=== PATIENT | male | born 1985 ===

== ENCOUNTER 2018-10-14 22:42 | Emergency (ER) | payer MEDICAID ==
[2018-10-14 22:57] VITALS: BP 143/88; PULSE 75; RESP 16; TEMP 98.5; O2SAT 99
[2018-10-14] MEDS ORDERED: Tdap Vaccine 0.5 ml Vial (10-64 yrs) IM ONE (23:48)
[2018-10-14] MEDS ORDERED: Lidocaine 2% Inj (20ml) INFIL ONE (23:49)
--- NOTE | 2018-10-15 | ED PDOC ---
HPI: General Adult Time Seen by Provider: 10/14/18 23:58 Chief Complaint (Nursing): Abnormal Skin Integrity Chief Complaint (Provider): FINGER LACERATION History Per: Patient (33 Y/O MALE HERE WITH FINGER LACERATION THAT OCCURRED PRIOR TO ED ARRIVAL. PATIENT WAS WASHING GLASS WHEN HE CUT HAND WITH EDGE OF BROKEN GLASS. LACERATION IS BY MCP FIFTH DIGIT. DOES NOT FEEL ANY FOREIGN BODY SENSATION. TETANUS UP TODATE.) Past Medical History Reviewed: Historical Data, Nursing Documentation, Vital Signs Vital Signs: Last Vital Signs Temp 98.5 F 10/14/18 22:54 Pulse 75 10/14/18 22:54 Resp 16 10/14/18 22:54 BP 143/88 10/14/18 22:54 Pulse Ox 99 10/14/18 22:54 - Medical History PMH: Anxiety, Depression, Post Traumatic Stress Disorder Denies: Diabetes, Hepatitis, HIV, HTN, Chronic Kidney Disease, Seizures, Sexually Transmitted Disease - Family History Family History: States: Unknown Family Hx - Immunization History Hx Tetanus Toxoid Vaccination: No Hx Influenza Vaccination: No Hx Pneumococcal Vaccination: No - Home Medications Home Medications: Ambulatory Orders Medication Instructions Recorded clonazePAM [clonAZEPAM] 0.5 mg PO DAILY 07/16/15 Cephalexin [Keflex] 500 mg PO TID #21 capsule 04/01/17 Tamsulosin [Flomax] 0.4 mg PO DAILY #15 cap 09/26/17 traMADol [Ultram] 50 mg PO TID PRN #15 tab 09/26/17 Ibuprofen [Motrin] 600 mg PO Q8 PRN #21 tab 10/15/18 - Allergies Allergies/Adverse Reactions: Allergies Allergy/AdvReac Type Severity Reaction Status Date / Time No Known Allergies Allergy Verified 09/25/17 23:30 Review of Systems ROS Statement: Except As Marked, All Systems Reviewed And Found Negative Physical Exam - Reviewed Nursing Documentation Reviewed: Yes Vital Signs Reviewed: Yes - Physical Exam Appears: Positive for: Well, Non-toxic, No Acute Distress Head Exam: Positive for: ATRAUMATIC, NORMAL INSPECTION, NORMOCEPHALIC Skin: Positive for: Normal Color, Warm, DRY Eye Exam: Positive for: EOMI, Normal appearance, PERRL ENT: Positive for: Normal ENT Inspection Neck: Positive for: Normal, Painless ROM Cardiovascular/Chest: Positive for: Regular Rate, Rhythm Respiratory: Positive for: CNT, Normal Breath Sounds Gastrointestinal/Abdominal: Positive for: Normal Exam, Soft Back: Positive for: Normal Inspection Extremity: Positive for: Normal ROM, Other (2.0CM LACERATION LATERAL ASPECT OF 5TH MCP FLAP LACERATION) Neurologic/Psych: Positive for: Alert, Oriented - ECG O2 Sat by Pulse Oximetry: 99 - Progress ED Course And Treament: TDAP 0.5ML IM X 1 DOSE Disposition - Clinical Impression Clinical Impression: Finger laceration - Patient ED Disposition Is Patient to be Admitted: No - Disposition Disposition: Routine/Home Disposition Time: 00:25 Condition: STABLE Additional Instructions: RETURN IN 7 TO 10 DAYS FOR REMOVAL OF SUTURES Prescriptions: Ibuprofen [Motrin] 600 mg PO Q8 PRN #21 tab PRN Reason: Pain, Moderate (4-7) Instructions: Laceration Repair With Stitches (DC) Forms: [facility] ED School/Work Excuse Procedure: Wound Repair - Time Performed Time Performed: 00:00 - Time Out Time Out: Site verified - Consent Obtained Consent obtained: Verbal - Performed by Performed by: Mid-level Provider - Indications Indication(s):: Laceration - Location Finger:: Right, Ring Shape:: Curvilinear Dimensions Length cm: 2.0CM Depth:: Epidermis - Anesthetic Technique Local/Regional Anesthetic:: Lidocaine 2% - Debris Debris:: None - Irrigated Irrigated with ml of normal saline: 150ML - Complexity Complexity:: Simple (one layer) - Wound repair method Sutures:: # (SIX 4-0 NYLON SUTURES.)
== END 2018-10-15 00:29 | disposition home or self-care (01) ==
LOC: H.ER 22:42
DX: S61.218A Laceration without foreign body of other finger without damage to nail, initial encounter (principal); W25.XXXA Contact with sharp glass, initial encounter; Y93.G1 Activity, food preparation and clean up; Z86.59 Personal history of other mental and behavioral disorders; F43.10 Post-traumatic stress disorder, unspecified; Z23 Encounter for immunization

== ENCOUNTER 2018-11-06 10:56 | Emergency (ER) | payer MEDICAID ==
[2018-11-06 11:05] VITALS: O2SAT 98
--- NOTE | 2018-11-06 12:52 | ED PDOC ---
Lower Extremity Pain/Injury Time Seen by Provider: 11/06/18 11:28 Chief Complaint (Nursing): Lower Extremity Problem/Injury Chief Complaint (Provider): Lower Extremity Problem/Injury History Per: Patient History/Exam Limitations: no limitations Onset/Duration Of Symptoms: Days (x1) Current Symptoms Are (Timing): Still Present Additional Complaint(s): Patient is a 33 y/o male with a PMHx of anxiety, depression, and PTSD who presents to the ED for evaluation of left lateral ankle pain and swelling onset yesterday. Patient took a mechanical fall down two steps. Patient woke up this morning with worsened pain and swelling. Patient states he can put some pressure on left foot but is unable to take more than three tor four steps. Patient has not taken any pain mediation for relief. PCP: Dr. Shaik Betancur Past Medical History Reviewed: Historical Data, Nursing Documentation, Vital Signs Vital Signs: Last Vital Signs Temp 97.7 F 11/06/18 11:21 Pulse 18 L 11/06/18 11:21 Resp 94 H 11/06/18 11:21 BP 155/78 H 11/06/18 11:21 Pulse Ox 98 11/06/18 11:21 - Medical History PMH: Anxiety, Depression, Post Traumatic Stress Disorder Denies: Diabetes, Hepatitis, HIV, HTN, Chronic Kidney Disease, Seizures, Sexually Transmitted Disease - Surgical History Surgical History: No Surg Hx - Family History Family History: States: Unknown Family Hx - Immunization History Hx Tetanus Toxoid Vaccination: No Hx Influenza Vaccination: No Hx Pneumococcal Vaccination: No - Home Medications Home Medications: Ambulatory Orders Medication Instructions Recorded clonazePAM [clonAZEPAM] 0.5 mg PO DAILY 07/16/15 Cephalexin [Keflex] 500 mg PO TID #21 capsule 04/01/17 Tamsulosin [Flomax] 0.4 mg PO DAILY #15 cap 09/26/17 traMADol [Ultram] 50 mg PO TID PRN #15 tab 09/26/17 Ibuprofen [Motrin] 600 mg PO Q8 PRN #21 tab 10/15/18 Ibuprofen [Motrin Tab] 800 mg PO Q6 #15 tab 11/06/18 - Allergies Allergies/Adverse Reactions: Allergies Allergy/AdvReac Type Severity Reaction Status Date / Time No Known Allergies Allergy Verified 09/25/17 23:30 Review of Systems ROS Statement: Except As Marked, All Systems Reviewed And Found Negative Constitutional: Positive for: Other (difficulty ambulating) Musculoskeletal: Positive for: Other (Left Ankle Pain and Swelling) Physical Exam - Reviewed Nursing Documentation Reviewed: Yes Vital Signs Reviewed: Yes - Physical Exam Appears: Positive for: No Acute Distress Head Exam: Positive for: ATRAUMATIC, NORMAL INSPECTION, NORMOCEPHALIC Skin: Positive for: Normal Color, Warm, Dry Eye Exam: Positive for: EOMI, Normal appearance, PERRL Neck: Positive for: Normal, Painless ROM, Supple Cardiovascular/Chest: Positive for: Regular Rate, Rhythm. Negative for: Murmur Respiratory: Positive for: Normal Breath Sounds. Negative for: Respiratory Dis tress Pulses-Dorsalis Pedis (L): 2+ Pulses-Dorsalis Pedis (R): 2+ Back: Positive for: Normal Inspection. Negative for: L CVA Tenderness, R CVA Tenderness, Vertebral Tenderness Extremity: Positive for: Normal ROM (with pain on dorsi and plantar flexion), Tenderness ( to anterior and posterior malleolus; to approximately fourth and fifth metatarsel bones), Swelling ( and ecchymosis to lateral left ankle and foot) Neurological/Psych: Positive for: Alert, Oriented - ECG O2 Sat by Pulse Oximetry: 98 (RA) Pulse Ox Interpretation: Normal Medical Decision Making Medical Decision Making: Time: 1151 Impression: r/o fractures and ligament injury Plan: Motrin 800 mg PO (x2) Ankle Left 3 Views Routine [Rad] Foot Left 3 Views Routine [Rad] Reassess Time: 1327 Ankle Xray FINDINGS: BONES: Bone alignment and mineralization are normal. There is no acute displaced fracture or bone destruction. JOINTS: Normal. Ankle mortise maintained. Talar dome intact SOFT TISSUES: Normal. OTHER FINDINGS: None. IMPRESSION: No acute fracture dislocation Time: 1328 Foot Xray FINDINGS: BONES: Bone alignment and mineralization are normal. There is no acute displaced fracture or bone destruction. JOINTS: Normal. SOFT TISSUES: Normal. OTHER FINDINGS: None. IMPRESSION: No acute fracture or dislocation. Time: 1340 No fracture. Put in splint and crutches. Training ordered. Followup with orthopedic in one week. Scribe Attestation: Documented by John Santacruz, acting as a scribe for Barbara Kim MD. Provider Scribe Attestation: All medical record entries made by the Scribe were at my direction and personally dictated by me. I have reviewed the chart and agree that the record accurately reflects my personal performance of the history, physical exam, medical decision making, and the department course for this patient. I have also personally directed, reviewed, and agree with the discharge instructions and disposition. Disposition - Clinical Impression Clinical Impression: Ankle sprain and strain - Disposition Referrals: Shaik Betancur MD [Primary Care Provider] - Jeny Montoya MD [Staff Provider] - Disposition: Routine/Home Disposition Time: 13:49 Condition: STABLE Additional Instructions: Rest, Ice, and Elevate the foot for the next 24 hours. 20 mins of ice on, then 20 mins of ice off, repeat. Follow up with orthopedist doctor in 3 to 5 days. Return to the emergency department if symptoms worsen or if new symptoms develop such as swelling, hot or cold foot, or severe pain. Take Motrin for pain. Prescriptions: Ibuprofen [Motrin Tab] 800 mg PO Q6 #15 tab Instructions: Ankle Sprain (DC), Foot Sprain (DC) Forms: [employer]), [facility] ED School/Work Excuse Print Language: [place]
--- NOTE | 2018-11-06 13:31 | RAD ---
Date of service: 11/06/2018 PROCEDURE: Left Ankle Radiographs. HISTORY: pain/swelling lat left ankle COMPARISON: None available. FINDINGS: BONES: Bone alignment and mineralization are normal. There is no acute displaced fracture or bone destruction. JOINTS: Normal. Ankle mortise maintained. Talar dome intact SOFT TISSUES: Normal. OTHER FINDINGS: None. IMPRESSION: No acute fracture dislocation.
--- NOTE | 2018-11-06 13:32 | RAD ---
Date of service: 11/06/2018 PROCEDURE: Left Foot Radiographs. HISTORY: pain to left foot, lat COMPARISON: None. FINDINGS: BONES: Bone alignment and mineralization are normal. There is no acute displaced fracture or bone destruction. JOINTS: Normal. SOFT TISSUES: Normal. OTHER FINDINGS: None. IMPRESSION: No acute fracture or dislocation.
[2018-11-06 14:55] VITALS: BP 120/70; PULSE 74; RESP 20; TEMP 98
== END 2018-11-06 14:33 | disposition home or self-care (01) ==
LOC: SUPCPDRO 10:56 → H.ER 10:56
DX: S93.402A Sprain of unspecified ligament of left ankle, initial encounter (principal); W19.XXXA Unspecified fall, initial encounter; Y92.89 Other specified places as the place of occurrence of the external cause; F43.10 Post-traumatic stress disorder, unspecified